=== PATIENT | female | born 1955 | race Caucasian/White ===

== ENCOUNTER → 2017-11-14 | Outpatient (CLI) | payer OTHER | LOC: RAD 14:28 | DX: Z12.31 Encounter for screening mammogram for malignant neoplasm of breast (principal) ==

== ENCOUNTER → 2017-11-17 | Outpatient (CLI) | payer OTHER | LOC: ULTRA 10:18 | DX: N63.20 Unspecified lump in the left breast, unspecified quadrant (principal) ==

== ENCOUNTER → 2018-07-24 | Outpatient (CLI) | payer OTHER | LOC: ULTRA 07-10 09:35 | DX: N60.02 Solitary cyst of left breast (principal); E03.9 Hypothyroidism, unspecified ==

== ENCOUNTER → 2019-05-14 | Outpatient (CLI) | payer OTHER | LOC: RAD 01:14 | DX: Z12.31 Encounter for screening mammogram for malignant neoplasm of breast (principal) ==

== ENCOUNTER → 2019-05-17 | Outpatient (CLI) | payer OTHER | LOC: RAD 00:25 | DX: N60.01 Solitary cyst of right breast (principal); R92.2 Inconclusive mammogram ==

== ENCOUNTER → 2020-01-13 | Outpatient (CLI) | payer OTHER | LOC: ULTRA 01-08 10:56 → BC 01-08 10:58 | PROVIDERS: ATTEND Family Medicine | DX: N60.01 Solitary cyst of right breast (principal); N64.9 Disorder of breast, unspecified ==

== ENCOUNTER → 2020-09-03 | Outpatient (CLI) | payer OTHER | LOC: BC 08:58 | PROVIDERS: ATTEND Family Medicine | DX: R92.8 Other abnormal and inconclusive findings on diagnostic imaging of breast (principal) ==

== ENCOUNTER → 2021-11-05 | Outpatient (CLI) | payer OTHER | LOC: BC 10-12 15:40 | PROVIDERS: ATTEND Family Medicine | DX: Z12.31 Encounter for screening mammogram for malignant neoplasm of breast (principal) ==